=== PATIENT | female | born 1995 | race Two or more races ===

== ENCOUNTER 2022-11-21 19:52 | Emergency (ER) | payer OTHER ==
[~2022-11-21] VITALS: Ht 167.6 cm; Wt 90.7 kg
[2022-11-21] MEDS ORDERED: SINGULAIR10 MG PO (20:15)
[2022-11-21] MEDS ORDERED: PRENATAL + DHA1 EAC1 (20:15)
[2022-11-21] MEDS ORDERED: PROAIR RESPICL90 MCG (20:16)
[2022-11-21] MEDS ORDERED: CLARITIN10 M1 (20:16)
== END 2022-11-21 22:51 | disposition home or self-care (01) ==
LOC: ER 19:52
DX: O23.31 Infections of other parts of urinary tract in pregnancy, first trimester (principal); N39.0 Urinary tract infection, site not specified; Z3A.12 12 weeks gestation of pregnancy; Z91.013 Allergy to seafood

== ENCOUNTER 2023-02-17 10:39 | Emergency (ER) | payer OTHER ==
[~2023-02-17] VITALS: Ht 167.6 cm; Wt 93.0 kg
[~2023-02-17 10:39] MED LIST: CLARITIN10 M1; PRENATAL + DHA1 EAC1; PROAIR RESPICL90 MCG; SINGULAIR10 MG PO
== END 2023-02-17 13:47 | disposition home or self-care (01) ==
LOC: ER 10:39
DX: O99.512 Diseases of the respiratory system complicating pregnancy, second trimester (principal); J06.9 Acute upper respiratory infection, unspecified; Z3A.24 24 weeks gestation of pregnancy; Z20.822 Contact with and (suspected) exposure to COVID-19; Z88.8 Allergy status to other drugs, medicaments and biological substances; Z91.013 Allergy to seafood

== ENCOUNTER 2023-06-07 10:46 | Inpatient (IN) | payer OTHER ==
[~2023-06-07] VITALS: Ht 167.6 cm; Wt 98.4 kg
[2023-06-07] MEDS ORDERED: RINGERS SOLUTION,LACTATED 1,000 ML IV SCH (12:45)
[2023-06-07] MEDS ORDERED: PRENATAL + DHA1 EAC1 PO (13:31)
[2023-06-07] MEDS ORDERED: PEPCID AC20 MG PO (13:31)
[2023-06-07] MEDS ORDERED: ZYRTEC10 MG PO (13:31)
[2023-06-07 13:51] LABS: HEMATOCRIT 33.1 % (36.0-45.00); HEMOGLOBIN 10.9 g/dL (12.0-15.00); MEAN CELL VOLUME 78.5 fL (80.00-100.00); MEAN CORPUSCULAR HEMOGLOBIN 25.8 pg (27.00-32.0); MEAN CORPUSCULAR HGB CONC 32.9 g/dl (32.0-36.0); PLATELET COUNT 230 K/uL (150-450); RED BLOOD COUNT 4.22 M/uL (4.00-6.00); RED CELL DISTRIBUTION WIDTH 15.8 % (11.5-14.5)
[2023-06-07 13:59] LABS: PH,URINE 6.5 (5.0-8.0); URINE APPEARANCE Cloudy; URINE BILIRRUBIN Negative (NEGATIVE); URINE BLOOD Negative; URINE COLOR Yellow; URINE GLUCOSE Negative (NEGATIVE); URINE LEUKOCYTE Negative; URINE NITRATE Negative; URINE PROTEIN Negative (NEGATIVE); URINE UROBILINOGEN 0.2 E.U./dl
[2023-06-07 14:02] LABS: URINE EPITHELIAL CELLS 35.5 uL (0.0-38.8); URINE RBC 5.4 uL (0.0-20.8); URINE WBC 10.9 uL (0.0-23.2)
[2023-06-07 14:25] LABS: INR < 0.93; PARTIAL THROMBOPLASTIN TIME 28.8 SECONDS (22.0-34.0); PROTHROMBIN TIME 9.7 SECONDS (9.0-11.5)
[2023-06-07 14:33] LABS: ALBUMIN 2.9 gm/dL (3.4-5.0); BILIRUBIN TOTAL 0.25 mg/dL (0.3-1.2); CALCIUM 9.4 mg/dL (8.5-10.1); CREATININE SERUM 0.5 mg/dL (0.55-1.02); GFR 145.87; GLOBULINA 3.4 G/DL (2.4-3.5); POTASSIUM 4.59 mEq/L (3.5-5.1); TOTAL PROTEIN 6.3 gm/dL (6.4-8.2)
[2023-06-08] MEDS ORDERED: AMPICILLIN SODIUM 2,000 MG VIAL ONE (00:11)
[2023-06-08] MEDS ORDERED: MEPERIDINE HCL/PF 50 MG/ML VIAL IV ONE (00:15)
[2023-06-08] MEDS ORDERED: AMPICILLIN SODIUM 2,000 MG VIAL IV ONE (00:15)
[2023-06-08] MEDS ORDERED: PROMETHAZINE HCL 25 MG/ML AMPUL IV ONE (00:15)
[2023-06-08] MEDS ORDERED: ERYTHROMYCIN BASE 1 GM TUBE OP ONE ×2 (03:23→06:30)
[2023-06-08] MEDS ORDERED: CHLORHEXIDINE GLUCONATE 120 ML BOTTLE TOP ONE ×2 (03:23→06:30)
[2023-06-08] MEDS ORDERED: OXYTOCIN 20 UNITS/1000ML RL PIGGYBAG IV ONE ×2 (03:23→06:30)
[2023-06-08] MEDS ORDERED: AMPICILLIN SODIUM 1,000 MG VIAL IV SCH (04:00)
[2023-06-08] MEDS ORDERED: ACETAMINOPHEN 325 MG TABLET PO PRN (06:30)
[2023-06-08] MEDS ORDERED: OxyCODONE HCL/APAP UD (PERCOCET) PO PRN (06:30)
[2023-06-08] MEDS ORDERED: LIDOCAINE HCL 1% 200MG/20ML VIAL IJ ONE (06:30)
[2023-06-08] MEDS ORDERED: BENZOCAINE/MENTHOL 90 ML BOTTLE TOP SCH (09:00)
[2023-06-08 12:22] LABS: HEMATOCRIT 32.1 % (36.0-45.00); HEMOGLOBIN 10.4 g/dL (12.0-15.00); MEAN CELL VOLUME 76.9 fL (80.00-100.00); MEAN CORPUSCULAR HEMOGLOBIN 24.9 pg (27.00-32.0); MEAN CORPUSCULAR HGB CONC 32.3 g/dl (32.0-36.0); PLATELET COUNT 222 K/uL (150-450); RED BLOOD COUNT 4.17 M/uL (4.00-6.00); RED CELL DISTRIBUTION WIDTH 16.3 % (11.5-14.5)
[2023-06-08] MEDS ORDERED: HYDROCORTISONE 2.5% 30 GM TUBE RECTAL SCH (13:00)
== END 2023-06-10 13:26 | disposition home or self-care (01) | DRG 806 ==
LOC: OBS/DEL 10:46 → LDR 12:28 → OB/GYN 16:28 → LDR 16:37 → OB/GYN 06-08 06:42
PROVIDERS: Specialist; ADMIT Obstetrics & Gynecology; ATTEND Obstetrics & Gynecology
PROC: 4A1HXCZ Monitoring of Products of Conception, Cardiac Rate, External Approach (ICD-10-PCS; 2023-06-07)
PROC: 10E0XZZ Delivery of Products of Conception, External Approach (ICD-10-PCS; principal; 2023-06-08)
PROC: 0HQ9XZZ Repair Perineum Skin, External Approach (ICD-10-PCS; 2023-06-08)
DX: O70.0 First degree perineal laceration during delivery (principal); O41.03X0 Oligohydramnios, third trimester, not applicable or unspecified; Z37.0 Single live birth; O48.0 Post-term pregnancy; Z3A.40 40 weeks gestation of pregnancy; Z20.822 Contact with and (suspected) exposure to COVID-19

== ENCOUNTER 2023-11-24 09:16 | Emergency (ER) | payer OTHER ==
[~2023-11-24] VITALS: Ht 167.6 cm; Wt 95.3 kg
[~2023-11-24 09:16] MED LIST changes: +PEPCID AC20 MG PO; +PRENATAL + DHA1 EAC1 PO; +ZYRTEC10 MG PO
[2023-11-24] MEDS ORDERED: ZYRTEC10 M3 (09:37)
[2023-11-24] MEDS ORDERED: ACETAMINOPHEN 500 MG GEL..CAP PO ONE (09:43)
[2023-11-24] MEDS ORDERED: FAMOTIDINE/PF 20 MG/2 ML VIAL ONE (10:12)
[2023-11-24] MEDS ORDERED: ONDANSETRON HCL 2 MG/ML VIAL ONE (10:12)
[2023-11-24] MEDS ORDERED: ONDANSETRON HCL 2 MG/ML VIAL IV ONE (10:15)
[2023-11-24] MEDS ORDERED: FAMOtidine 10 MG/ML (4ML VIAL) IV ONE (10:15)
[2023-11-24] MEDS ORDERED: 0.9 % SODIUM CHLORIDE 1,000 ML IV ONE (10:15)
[2023-11-24 11:24] LABS: HEMATOCRIT 35.9 % (36.0-45.00); MEAN CELL VOLUME 77.8 fL (80.00-100.00); MEAN CORPUSCULAR HEMOGLOBIN 25.7 pg (27.00-32.0); PLATELET COUNT 236 K/uL (150-450); RED BLOOD COUNT 4.62 M/uL (4.00-6.00); RED CELL DISTRIBUTION WIDTH 13.5 % (11.5-14.5)
[2023-11-24 11:26] LABS: HEMOGLOBIN 11.9 g/dL (12.0-15.00)
[2023-11-24 12:12] LABS: ALBUMIN 3.3 gm/dL (3.4-5.0); ALKALINE PHOSPHATASE 71 U/L (50-136); ALT/SGPT 25 U/L (12-78); ANION GAP 14 (10.0-20.0); AST/SGOT 15 U/L (15-37); BILIRUBIN TOTAL 0.57 mg/dL (0.3-1.2); BLOOD UREA NITROGEN 8 mg/dL (7-18); BUN CREA RATIO 19 (7.0-25.0); CALCIUM 9.1 mg/dL (8.5-10.1); CARBON DIOXIDE 21 mEq/L (21-32); CHLORIDE 104 mmol/L (98-107); CREATININE SERUM 0.43 mg/dL (0.55-1.02); GFR 172.41; GLOBULINA 3.9 G/DL (2.4-3.5); GLUCOSE FASTING 104 mg/dL (65-100); OSMOLALITY SERUM 269 MOSM/KG (275-295); POTASSIUM 3.63 mEq/L (3.5-5.1); SODIUM 135 mmol/L (136-145); TOTAL PROTEIN 7.2 gm/dL (6.4-8.2)
[2023-11-24 12:14] LABS: HCG QUANTITATIVE < 1 mUI/mL (1-3)
[2023-11-24] MEDS ORDERED: PEPCID AC20 MG PO (13:38)
[2023-11-24] MEDS ORDERED: ZOFRAN8 MG PO (13:38)
[2023-11-24] MEDS ORDERED: METRONIDAZOLE500 MG PO (13:38)
== END 2023-11-24 13:51 | disposition home or self-care (01) ==
LOC: ER 09:18
PROVIDERS: General Practice
DX: K29.70 Gastritis, unspecified, without bleeding (principal); Z91.013 Allergy to seafood; Z88.8 Allergy status to other drugs, medicaments and biological substances; Z20.822 Contact with and (suspected) exposure to COVID-19

== ENCOUNTER → 2025-04-01 | Emergency (ER) | payer OTHER ==
[~2025-04-01] MED LIST changes: +METRONIDAZOLE500 MG PO; +ZOFRAN8 MG PO; +ZYRTEC10 M3
== END | disposition left against medical advice (07) ==
LOC: ER 14:52
DX: Z53.21 Procedure and treatment not carried out due to patient leaving prior to being seen by health care provider (principal)